=== PATIENT | male | born 1955 | race Asian ===

== ENCOUNTER 2021-03-30 15:41 | Emergency (ER) | payer BC ==
[~2021-03-30] VITALS: Ht 167.6 cm; Wt 61.2 kg
[2021-03-30] MEDS ORDERED: ONDANSETRON HCL/PF 4 MG/2 ML VIAL ONE ×2 (15:56→17:43)
[2021-03-30] MEDS ORDERED: MORPHINE SULFATE INJ 4 MG/ML DISP.SYRIN ONE (15:56)
[2021-03-30] MEDS ORDERED: IV NS 0.9% 1,000 ML BAG IV ONE (16:00)
[2021-03-30] MEDS ORDERED: ONDANSETRON HCL/PF 4 MG/2 ML VIAL IVP ONE (16:00)
[2021-03-30] MEDS ORDERED: MORPHINE SULFATE INJ 2 MG/ML DISP.SYRIN IV ONE (16:00)
--- NOTE | 2021-03-30 16:00 | NUR ---
Patient came in to the er c/o abd pain since this morning. On room air, breathing evenly and unlabored. Connected to the monitor and pulse ox. Kept comfortable, will continue to monitor accordingly.
[2021-03-30 16:08] LABS: BASOPHILS % (AUTO) 0.2 % (0.0-2.0); EOSINOPHILS % (AUTO) 0.1 % (0.0-6.0); HEMATOCRIT 45 % (39-51); HEMOGLOBIN 14.9 g/dL (13.5-17.5); LYMPHOCYTES # (AUTO) 0.8 K/uL (0.8-4.8); MEAN CORPUSCULAR HGB CONC 33 g/dl (31.0-36.0); MEAN CORPUSCULAR VOLUME 94 fL (80-96); MONOCYTES # (AUTO) 0.5 K/uL (0.1-1.30); MONOCYTES % (AUTO) 3.9 % (2.0-12.0); NEUTROPHILS # (AUTO) 11.9 K/uL (1.8-8.9); NEUTROPHILS % (AUTO) 89.8 % (43.0-81.0); PLATELET COUNT (AUTO) 211 K/uL (150-450); RED BLOOD CELL COUNT(AUTO) 4.77 MIL/uL (4.5-6.0); WHITE BLOOD COUNT (AUTO) 13.2 K/uL (4.3-11.0)
[2021-03-30 16:47] LABS: CALCIUM, SERUM 9.2 mg/dL (8.5-10.1); POTASSIUM 4.9 mmol/L (3.5-5.1)
[2021-03-30 16:53] LABS: ALBUMIN 4.2 g/dL (3.4-5.0); BILIRUBIN,DIRECT 0.2 mg/dL (0.0-0.2); BILIRUBIN,TOTAL 1.9 mg/dL (0.2-1.0); TOTAL PROTEIN, SERUM 8.5 g/dL (6.4-8.2)
[2021-03-30] MEDS ORDERED: IV NS 0.9% 250 ML IV ONE (16:55)
[2021-03-30] MEDS ORDERED: IOHEXOL-300 100 ML VIAL IV ONE (16:55)
[2021-03-30] MEDS ORDERED: ONDANSETRON HCL/PF 4 MG/2 ML VIAL IV ONE (18:00)
[2021-03-30 18:13] LABS: BILIRUBIN,URINE Negative (NEGATIVE); COLOR,URINE YELLOW (YELLOW); LEUKOCYTE ESTERASE ,URINE Negative (NEGATIVE); NITRITE, URINE Negative (NEGATIVE); PH,URINE 5.5 (5.0-8.0); PROTEIN,URINE Negative (NEGATIVE); UGLUCOSE 500 MG/DL mg/dL (NEGATIVE); UROBILINOGEN,URINE 0.2 EU/dL (0.2)
[2021-03-30 18:31] LABS: BACTERIA,URINE Rare /HPF (None Seen); RBC,URINE 21-50 /HPF (0-2); SQUAMOUS EPITHELIAL CELL,UR 0-2 /HPF (None Seen); WBC,URINE 0-2 /HPF (0-3)
--- NOTE | 2021-03-30 19:05 | NUR ---
rec'd report from myra Ward for johnnie
--- NOTE | 2021-03-30 19:15 | NUR ---
covid swab collected and sent to lab.
--- NOTE | 2021-03-30 20:02 | NUR ---
CALLED UROLOGY. DOCTOR WILL BE PAGED AND CALL BACK WITHIN 20 MINUTES.
--- NOTE | 2021-03-30 20:28 | NUR ---
ER SPOKE TO DR. SHAFFER REGARDING PT.
[2021-03-30] MEDS ORDERED: KETOROLAC TROMETHAMINE INJ 30 MG/ML VIAL ONE (20:30)
[2021-03-30] MEDS ORDERED: KETOROLAC TROMETHAMINE INJ 30 MG/ML VIAL IV ONE (20:30)
[2021-03-30] MEDS ORDERED: IBUP-1957 PO (20:35)
[2021-03-30] MEDS ORDERED: ONDA4TAB11 PO (20:35)
--- NOTE | 2021-03-30 20:45 | NUR ---
IV removed. Catheter intact and site benign. Pressure and 4x4 applied to site. No bleeding noted.
--- NOTE | 2021-03-30 20:45 | NUR ---
Patient discharged to home in stable condition. Written and verbal after care instructions given. Patient verbalizes understanding of instruction.
[2021-03-30 20:48] VITALS: BP 114/68
== END 2021-03-30 20:44 | disposition home or self-care (01) ==
LOC: ER 15:43
DX: N13.2 Hydronephrosis with renal and ureteral calculous obstruction (principal); D72.829 Elevated white blood cell count, unspecified; Z20.822 Contact with and (suspected) exposure to COVID-19; E11.9 Type 2 diabetes mellitus without complications; I10 Essential (primary) hypertension
CPT/HCPCS: 36415; 74177; 76705; 80048; 80076; 81001; 83690; 85025; 87426; 96361; 96374; 96375; 96376; 99291; C9803; J1885; J2270; J2405 ×2; J7030; J7050; Q9967